=== PATIENT | male | born 1940 | race Caucasian/White ===

== ENCOUNTER 2023-05-13 09:03 | Outpatient (CLI) | payer OTHER ==
[~2023-05-13 09:03] MED LIST: ALTACE5 MG; AMLODIPINE BES2.5 MG; CARVEDILOL6.25 MG; GLIPIZIDE10 MG; PNEU16DI2; TRICOR48 MG; ZETIA
[2023-05-13] MEDS ORDERED: ZESTORETIC 20-1 EAC1 PO (12:55)
[2023-05-13] MEDS ORDERED: ELIQUIS5 MG PO (12:55)
[2023-05-13] MEDS ORDERED: GLIPIZIDE XL2.5 MG PO (12:56)
== END 2023-05-13 09:06 | disposition home or self-care (01) ==
LOC: LAB 09:03
PROVIDERS: ATTEND Surgery Surgery of the Hand
DX: Z01.812 Encounter for preprocedural laboratory examination (principal); D68.9 Coagulation defect, unspecified; M35.89 Other specified systemic involvement of connective tissue; Z20.822 Contact with and (suspected) exposure to COVID-19

== ENCOUNTER 2023-05-19 05:35 | Day surgery (SDC) | payer OTHER ==
[~2023-05-19] VITALS: Ht 177.8 cm; Wt 75.7 kg
[~2023-05-19 05:35] MED LIST changes: +ELIQUIS5 MG PO; +GLIPIZIDE XL2.5 MG PO; +ZESTORETIC 20-1 EAC1 PO
== END 2023-05-19 10:45 | disposition home or self-care (01) ==
LOC: CIR.AMB 05:35
PROVIDERS: ATTEND Surgery Surgery of the Hand
DX: M65.842 Other synovitis and tenosynovitis, left hand (principal); Z20.822 Contact with and (suspected) exposure to COVID-19

== ENCOUNTER → 2025-08-11 | Emergency (ER) | payer OTHER ==
[~2025-08-11] VITALS: Ht 177.8 cm; Wt 75.7 kg
[~2025-08-11] MED LIST changes: +BUMETANIDE 0.25 MG/ML VIAL 4ML IV ONE; +CEFTRIAXONE SODIUM 2,000 MG VIAL IV ONE; +CEFTRIAXONE SODIUM 2,000 MG VIAL ONE; +ENALAPRILAT DIHYDRATE 1.25 MG/ML VIAL IV ONE
[2025-08-11 11:12] LABS: BASO % 0.6 % (0.1-1.2); EOS # 0.13 (0.04-0.54); EOS % 1.9 % (0.7-7.0); LYMPH # 0.80 (1.18-3.74); LYMPH % 11.4 % (19.3-53.1); MEAN PLATELET VOLUME 11.10 fl (9.4-12.4); MONO # 0.49 (0.24-0.82); MONO % 7.0 % (4.7-12.5); NEUT # 5.54 (1.56-6.13); NEUT % 78.8 % (34.0-71.1); RED CELL DISTRIBUTION WIDTH 13.3 % (11.6-14.4)
[2025-08-11 11:35] LABS: INR 1.11
[2025-08-11 11:43] LABS: ALT/SGPT 39.0 U/L (12-78); AST/SGOT 30.0 U/L (15-37); BILIRUBIN TOTAL 0.39 mg/dL (0.3-1.2); BUN CREA RATIO 23.0 (7.0-25.0); CREATININE SERUM 0.78 mg/dL (0.70-1.30); GFR 94.83; GLOBULINA 3.1 G/DL (2.4-3.5); GLUCOSE FASTING 135.0 mg/dL (65-100); OSMOLALITY SERUM 289.0 MOSM/KG (275-295)
[2025-08-11 11:53] LABS: URINE APPEARANCE Clear; URINE BILIRRUBIN Negative (NEGATIVE); URINE BLOOD Negative; URINE COLOR Yellow; URINE GLUCOSE Negative (NEGATIVE); URINE KETONE Negative (NEGATIVE); URINE LEUKOCYTE Small; URINE NITRATE Negative; URINE PROTEIN Negative (NEGATIVE); URINE UROBILINOGEN 0.2 E.U./dl
[2025-08-11 11:57] LABS: URINE BACTERIA 19.1 uL (0.0-1933); URINE RBC 4.8 uL (0.0-20.8); URINE WBC 116.1 uL (0.0-23.2)
[2025-08-11 12:17] LABS: URINE CAST 0.00 uL (0.0-1.40); URINE EPITHELIAL CELLS 0.9 uL (0.0-38.8)
== END | disposition designated cancer center or children's hospital (05) ==
LOC: ER 09:03
DX: I50.9 Heart failure, unspecified (principal); L76.34 Postprocedural seroma of skin and subcutaneous tissue following other procedure; R74.8 Abnormal levels of other serum enzymes; N50.89 Other specified disorders of the male genital organs; I10 Essential (primary) hypertension; E11.9 Type 2 diabetes mellitus without complications
CPT/HCPCS: 36415; 71046; 74176; 76870; 93005; 96365; 99285; J0696; J3490 ×2